=== PATIENT | male | born 1990 | race Caucasian/White ===

== ENCOUNTER 2017-12-05 09:45 | Emergency (ER) | payer OTHER ==
[2017-12-05] MEDS: ACETAMINOPHEN 500 MG TAB PO (10:57)
[2017-12-05] MEDS: LIDOCAINE 1%/EPI (MDV) 50 ML INJ INJ (11:57)
== END 2017-12-05 12:43 | disposition left against medical advice (07) ==
LOC: FTE 12:43
DX: T81.31XA Disruption of external operation (surgical) wound, not elsewhere classified, initial encounter (principal); F17.210 Nicotine dependence, cigarettes, uncomplicated; Y65.8 Other specified misadventures during surgical and medical care
CPT/HCPCS: 12021; 99283-25